=== PATIENT | female | born 1985 | race Caucasian/White ===

== ENCOUNTER 2019-07-25 00:41 | Emergency (ER) | payer OTHER ==
[2019-07-25 00:49] VITALS: BP 113/62
[2019-07-25] MEDS ORDERED: KETOROLAC 60 MG/2 ML VIAL IM STA (01:00)
--- NOTE | 2019-07-25 01:30 | ED Physician Documentation ---
PD HPI LOWER EXT INJURY - Stated complaint Stated Complaint: L TOE PX - Chief complaint Chief Complaint: Trauma Ext - History obtained from History obtained from: Patient - History of Present Illness PD HPI LOW EXT INJURY LOCATION: Left, Toe (great) Type of injury: Blunt / blow Where injury occurred: Home Timing - onset: Enter time (1729), Today Timing - duration: Hours Timing - details: Abrupt onset, Still present Improved by: Rest, Immobilization Worsened by: Moving, Palpating Associated symptoms: Swelling. No: Weakness, Numbness, Tingling Contributing factors: No: Anticoagulated Similar symptoms before: Has not had sx before Recently seen: Not recently seen - Additional information Additional information: Previously well 33-year-old female has dropped a hydro-flask on her left great toe. She did this earlier in the day and she is not able to sleep secondary to severe throbbing pain. She is concerned there is a fracture. 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 : None HEENT: None Psych: Depression, Anxiety, Post traumatic stress disorder Musculoskeletal: None Derm: None - Past Surgical History Past Surgical History: Yes /TURNTABLE OPERATOR: Other - Present Medications Home Medications: Ambulatory Orders Medication Instructions Recorded Confirmed Hydrocodone/Acetaminophen 1 - 2 each PO Q6H PRN #14 tablet 07/25/19 [Hydrocodon-Acetaminophen 5-325] - Allergies Allergies/Adverse Reactions: Allergies Allergy/AdvReac Type Severity Reaction Status Date / Time amoxicillin Allergy Intermediate Hives Verified 07/25/19 00:50 Penicillins Allergy Intermediate Hives Verified 07/25/19 00:50 - Social History Does the pt smoke?: Yes Smoking Status: Current every day smoker Does the pt drink ETOH?: No Does the pt have substance abuse?: No - Immunizations Immunizations are current?: Yes - POLST Patient has POLST: No PD ED PE NORMAL - Vitals Vital signs reviewed: Yes (Normal) - General General: Alert and oriented X 3, No acute distress, Well developed/nourished - HEENT HEENT: Atraumatic, PERRL, EOMI - Respiratory Respiratory: No respiratory distress - Derm Derm: Normal color, Warm and dry, No rash - Extremities Extremities: Other (The tip of the left great toe is swollen and ecchymotic it is tender there is no significant subungual hematoma. The great toe is swollen to the tip. Proximally there is some tenderness to the ball the foot.) - Neuro Neuro: Alert and oriented X 3, design checker 2-12 intact, No motor deficit, No sensory deficit, Normal speech Eye Opening: Spontaneous Motor: Obeys Commands Verbal: Oriented GCS Score: 15 - Psych Psych: Normal mood, Normal affect Results - Vitals Vitals: Vital Signs - 24 hr 07/25/19 07/25/19 00:43 01:07 Temperature 36.6 C Heart Rate 77 Respiratory 17 16 Rate Blood Pressure 113/62 O2 Saturation 99 Oxygen O2 Source Nasal cannula - Rads (name of study) toe Radiology: Prelim report reviewed (Impression: No acute osseous abnormalities. ), EMP read indepedently, See rad report PD MEDICAL DECISION MAKING - ED course Complexity details: reviewed results, re-evaluated patient, considered differential, d/w patient ED course: 33-year-old female with a painful contusion to the left great toe has a lot of swelling it is tense and tender. There is no evidence of fracture on x-ray examination she is administered Toradol 60 mg IM and we will send her home with some pain medication. Departure - Departure Disposition: Home, Self Care Clinical Impression: Contusion of toe of left foot Qualifiers: Encounter type: initial encounter Toe: great toe Damage to nail status: without damage Qualified Code(s): S90.112A - Contusion of left great toe without damage to nail, initial encounter Condition: Stable Instructions: ED Contusion Lower Ext Follow-Up: [facility] [Provider Group] Prescriptions: Hydrocodone/Acetaminophen [Hydrocodon-Acetaminophen 5-325] 1 - 2 each PO Q6H PRN #14 tablet PRN Reason: pain
[2019-07-25] MEDS ORDERED: HYDROcod/ACET 5/325 Prepack 4 PO STA (01:35)
--- NOTE | 2019-07-25 01:43 | XRAY Report ---
Reason: Left great toe contusion Procedure Date: 07/25/2019 Accession Number: [id number] / [id number] Procedure: XR - Toe(s) LT CPT Code: FULL RESULT: EXAM: LEFT TOE RADIOGRAPHY EXAM DATE: 07/25/2019 01:27 AM. CLINICAL HISTORY: Left great toe contusion. COMPARISON: None. TECHNIQUE: 3 views. FINDINGS: Bones: Normal. No fracture or bone lesion. Joints: Normal. No subluxations. Soft Tissues: Normal. No soft tissue swelling. IMPRESSION: No acute osseous abnormalities. RADIA
== END 2019-07-25 01:55 | disposition home or self-care (01) ==
LOC: ED 00:41
DX: S90.112A Contusion of left great toe without damage to nail, initial encounter (principal); W20.8XXA Other cause of strike by thrown, projected or falling object, initial encounter; Y92.009 Unspecified place in unspecified non-institutional (private) residence as the place of occurrence of the external cause; F17.200 Nicotine dependence, unspecified, uncomplicated
CPT/HCPCS: 73660; 99283; 99284

== ENCOUNTER 2020-01-22 15:27 | Emergency (ER) | payer OTHER ==
--- NOTE | 2020-01-22 16:24 | XRAY Report ---
Reason: Chest Pain Procedure Date: 01/22/2020 Accession Number: [id number] / [id number] Procedure: XR - Chest 1 View X-Ray CPT Code: 39614 Final Report FULL RESULT: EXAM: CHEST RADIOGRAPHY EXAM DATE: 01/22/2020 04:12 PM. CLINICAL HISTORY: Chest Pain. COMPARISON: None. TECHNIQUE: 1 view. FINDINGS: Lungs/Pleura: No focal opacities evident. No pleural effusion. No pneumothorax. Mediastinum: Within exam limitations, the cardiomediastinal contour is normal. Other: None. IMPRESSION: Normal single view chest. RADIA
[2020-01-22 16:31] LABS: BASOPHILS % (AUTO) 0.5 %; EOSINOPHILS # (AUTO) 0.1 10^3/uL (0.0-0.7); EOSINOPHILS % (AUTO) 2.2 %; HGB - HEMOGLOBIN 12.6 g/dL (12.0-16.0); LYMPHOCYTES # (AUTO) 2.6 10^3/uL (1.5-3.5); LYMPHOCYTES % (AUTO) 42.8 %; MEAN CORPUSCULAR HEMOGLOBIN 31.6 pg (27.0-31.0); MEAN CORPUSCULAR HGB CONC 34.3 g/dL (32.0-36.0); MEAN PLATELET VOLUME 9.3 fL (7.9-10.8); MONOCYTES # (AUTO) 0.5 10^3/uL (0.0-1.0); MONOCYTES % (AUTO) 8.6 %; NEUTROPHILS # (AUTO) 2.7 10^3/uL (1.5-6.6); NEUTROPHILS % (AUTO) 45.6 %; PLT - PLATELET COUNT 241 10^3/uL (130-450); RED BLOOD COUNT 3.99 10^6/uL (4.20-5.40); RED CELL DISTRIBUTION WIDTH 11.9 % (12.0-15.0)
--- NOTE | 2020-01-22 16:32 | ED Physician Documentation ---
History of Present Illness - Stated complaint Stated Complaint: CP/SOA/LT ARM PX - Chief complaint Chief Complaint: Cardiac - History obtained from History obtained from: Patient - History of Present Illness Timing: How many days ago (14) Pain level max: 5 Pain level now: 4 - Additonal information Additional information: Patient is a 34-year-old female who presents to the emergency department stating that she has had left-sided chest pain constantly for the past 14 days. No change in symptoms. Nothing makes it better or worse. No change with eating, drinking, movement, breathing. She does smoke cigarettes. She denies any possibility of . No recent leg pain or swelling. No recent travel. No recent surgery. She states that the chest pain has been there for 14 days, but the shortness of breath started today. She states she only feels short of breath when she tries to take a deep breath, she states that she feels like she cannot get a breath all the way in. Does not currently use inhalers. No fever. No cough. 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 : None HEENT: None Psych: Depression, Anxiety, Post traumatic stress disorder Musculoskeletal: None Derm: None - Past Surgical History Past Surgical History: Yes /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: Other - Present Medications Home Medications: Ambulatory Orders Medication Instructions Recorded Confirmed Hydrocodone/Acetaminophen 1 - 2 each PO Q6H PRN #14 tablet 07/25/19 [Hydrocodon-Acetaminophen 5-325] Albuterol Sulf [Ventolin Hfa 1 - 2 puffs INH Q4HR PRN #1 inhaler 01/22/20 Inhaler] - Allergies Allergies/Adverse Reactions: Allergies Allergy/AdvReac Type Severity Reaction Status Date / Time amoxicillin Allergy Intermediate Hives Verified 01/22/20 15:41 Penicillins Allergy Intermediate Hives Verified 01/22/20 15:41 - Social History Does the pt smoke?: Yes Smoking Status: Current every day smoker Does the pt drink ETOH?: No Does the pt have substance abuse?: No - Immunizations Immunizations are current?: Yes - POLST Patient has POLST: No PD ED PE NORMAL - Vitals Vital signs reviewed: Yes - General General: Alert and oriented X 3, No acute distress, Well developed/nourished - HEENT HEENT: PERRL, Moist mucous membranes - Neck Neck: Supple, no meningeal sign - Cardiac Cardiac: RRR, Strong equal pulses - Respiratory Respiratory: No respiratory distress, Other (Decreased breath sounds at the bases bilaterally) - Abdomen Abdomen: Soft, Non tender, Non distended - Derm Derm: Warm and dry, No rash - Extremities Extremities: No edema, No calf tenderness / cord - Neuro Neuro: Alert and oriented X 3 - Psych Psych: Normal mood, Normal affect - Free text exam Free text exam: No chest wall tenderness. Results - Vitals Vitals: Vital Signs - 24 hr 01/22/20 01/22/20 01/22/20 15:30 16:25 16:52 Temperature 36.4 C L Heart Rate 66 62 Respiratory 16 16 Rate Blood Pressure 148/81 H Blood Pressure 133/78 H [Right] O2 Saturation 99 01/22/20 01/22/20 17:00 17:48 Temperature Heart Rate 59 L 57 L Respiratory 16 14 Rate Blood Pressure 130/81 H 131/77 H Blood Pressure [Right] O2 Saturation 95 100 Oxygen O2 Source Room air - EKG (time done) 1532 Rate: Rate (enter#) (63) Rhythm: NSR [place]: Normal Intervals: Normal [place] QRS: Normal Ischemia: Normal ST segments - Labs Labs: Laboratory Tests 01/22/20 01/22/20 01/22/20 16:19 16:19 16:19 WBC 6.0 RBC 3.99 L Hgb 12.6 Hct 36.7 L MCV 92.0 MCH 31.6 H MCHC 34.3 RDW 11.9 L Plt Count 241 MPV 9.3 Neut # (Auto) 2.7 Lymph # (Auto) 2.6 Osborne # (Auto) 0.5 Eos # (Auto) 0.1 Baso # (Auto) 0.0 Absolute Nucleated RBC 0.00 Nucleated RBC % 0.0 D-Dimer Sodium 133 L Potassium 3.6 Chloride 100 L Carbon Dioxide 24 Anion Gap 9.0 BUN 16 Creatinine 0.7 Estimated GFR (MDRD) 95 Glucose 120 H Calcium 8.8 Total Bilirubin 0.3 AST 26 ALT 16 Alkaline Phosphatase 59 Troponin I High Sens < 2.3 L Total Protein 7.2 Albumin 4.2 Globulin 3.0 Albumin/Globulin Ratio 1.4 Lipase 43 01/22/20 16:50 WBC RBC Hgb Hct MCV MCH MCHC RDW Plt Count MPV Neut # (Auto) Lymph # (Auto) Osborne # (Auto) Eos # (Auto) Baso # (Auto) Absolute Nucleated RBC Nucleated RBC % D-Dimer < 200.0 L Sodium Potassium Chloride Carbon Dioxide Anion Gap BUN Creatinine Estimated GFR (MDRD) Glucose Calcium Total Bilirubin AST ALT Alkaline Phosphatase Troponin I High Sens Total Protein Albumin Globulin Albumin/Globulin Ratio Lipase - Rads (name of study) Chest x-ray Radiology: Prelim report reviewed, EMP read contemporaneously, See rad report (No acute disease) PD MEDICAL DECISION MAKING - ED course Complexity details: reviewed results, re-evaluated patient, considered differential (No ST elevation NM, no aortic dissection, no PE, no tension pneumothorax, no aortic aneurysm), d/w patient ED course: Patient feels better after nebulizer treatment. She feels like she is breathing easier and her chest pain is decreasing. Will prescribe an inhaler for her for home. No evidence of acute coronary syndrome, pulmonary embolus. No evidence of pneumothorax. No evidence of aortic dissection. Patient counseled regarding signs and symptoms for which I believe and urgent re-evaluation would be necessary. Patient with good understanding of and agreement to plan and is comfortable going home at this time This document was made in part using voice recognition software. While efforts are made to proofread this document, sound alike and grammatical errors may occur. Departure - Departure Disposition: Home, Self Care Clinical Impression: Chest pain Qualifiers: Chest pain type: unspecified Qualified Code(s): R07.9 - Chest pain, unspecified Condition: Good Instructions: ED Chest Pain Atypical Unkn Cause Follow-Up: Radha Ogden MD [Primary Care Provider] - Prescriptions: Albuterol Sulf [Ventolin Hfa Inhaler] 1 - 2 puffs INH Q4HR PRN #1 inhaler PRN Reason: Shortness Of Air/Wheezing Comments: The cause of your symptoms is unclear today. You seem to feel better with the inhaler. We will prescribe this for you. You should use this with a spacer as well. Return if you worsen.
[2020-01-22] MEDS ORDERED: ALBUTEROL NEB 2.5 MG/3 ML INH STA (16:39)
[2020-01-22] MEDS ORDERED: MAG HYDROX/AL HYDROX/SIMETH 30 ML UDC PO STA (16:41)
[2020-01-22] MEDS ORDERED: LIDOCAINE VISCOUS 2% 15 ML UDC MM STA (16:41)
[2020-01-22] MEDS ORDERED: FAMOTIDINE 20 MG TABLET PO STA (16:41)
[2020-01-22] MEDS ORDERED: SUCRALFATE 1 GM/10 ML UDC PO STA (16:41)
[2020-01-22 16:42] LABS: ALBUMIN 4.2 g/dL (3.2-5.5); ALBUMIN/GLOBULIN RATIO 1.4 (1.0-2.2); BILIRUBIN,TOTAL 0.3 mg/dL (0.2-1.0); CALCIUM 8.8 mg/dL (8.5-10.3); CREATININE 0.7 mg/dL (0.4-1.0); TOTAL PROTEIN 7.2 g/dL (6.7-8.2)
[2020-01-22 17:48] VITALS: BP 131/77
== END 2020-01-22 18:00 | disposition home or self-care (01) ==
LOC: ED 15:27
DX: R07.9 Chest pain, unspecified (principal); F17.210 Nicotine dependence, cigarettes, uncomplicated
CPT/HCPCS: 36415; 71045; 80053; 83690; 84484; 85025; 85379; 93005; 94640; 99284; A9270

== ENCOUNTER 2020-02-13 15:56 | Emergency (ER) | payer OTHER ==
[2020-02-13 16:11] VITALS: BP 122/63
[2020-02-13] MEDS ORDERED: HYDROcod/ACETAM 5/325 MG TABLET PO STA (16:21)
--- NOTE | 2020-02-13 16:22 | ED Physician Documentation ---
PD HPI UPPER EXT INJURY - Stated complaint Stated Complaint: RT HAND INJURY - Chief complaint Chief Complaint: Trauma Ext - History obtained from History obtained from: Patient (She tripped and fell in her dog pulled the leash. She landed on her right hand and has moderate to severe pain there. No other injuries. 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: Other - Present Medications Home Medications: Ambulatory Orders Medication Instructions Recorded Confirmed Hydrocodone/Acetaminophen 1 - 2 each PO Q6H PRN #14 tablet 07/25/19 [Hydrocodon-Acetaminophen 5-325] Albuterol Sulf [Ventolin Hfa 1 - 2 puffs INH Q4HR PRN #1 inhaler 01/22/20 Inhaler] Hydrocodone/Acetaminophen 1 - 2 each PO Q6H PRN #14 tablet 02/13/20 [Hydrocodon-Acetaminophen 5-325] - Allergies Allergies/Adverse Reactions: Allergies Allergy/AdvReac Type Severity Reaction Status Date / Time amoxicillin Allergy Intermediate Hives Verified 02/13/20 16:08 Penicillins Allergy Intermediate Hives Verified 02/13/20 16:08 - Social History Does the pt smoke?: Yes Smoking Status: Current every day smoker Does the pt drink ETOH?: No Does the pt have substance abuse?: No - Immunizations Immunizations are current?: Yes - POLST Patient has POLST: No PD ED PE NORMAL - Vitals Vital signs reviewed: Yes - General General: Alert and oriented X 3, No acute distress - Extremities Extremities: Other (She is tender near the MCPs of the fourth and fifth digits of the right hand and she is holding those fingers fairly flexed. There is a suggestion of a rotational deformity to the fifth finger but cannot get it down towards the carpals to test for saccade.) - Neuro Neuro: Alert and oriented X 3, Normal speech Results - Vitals Vitals: Vital Signs - 24 hr 02/13/20 16:08 Temperature 36.5 C Heart Rate 65 Respiratory 14 Rate Blood Pressure 122/63 O2 Saturation 96 Oxygen O2 Source Room air - Rads (name of study) R hand 3v Radiology: EMP read contemporaneously (Acute fractures of the proximal fourth and fifth phalangese, Both angulated) Procedures - Splint (location) RUE Splint applied by: Physician Type of splint: Fiberglass, Short arm, Ulnar gutter Other: Patient tolerated well, No complications, Neurovascular intact - Reduction Body part reduced: Right, Finger (4th and 5th) Fracture or dislocation: Fracture dislocation Anesthesia: Digital block Reduction aftercare: Alignment improved PD MEDICAL DECISION MAKING - ED course ED course: Finger was reduced after digital block with decent visual alignment. Placed in a splint. Referred to orthopedics. Departure - Departure Disposition: 01 Home, Self Care Clinical Impression: Finger fracture, right Qualifiers: Encounter type: initial encounter Finger: little finger Fracture type: closed Phalanx: proximal Fracture alignment: displaced Qualified Code(s): S62.616A - Displaced fracture of proximal phalanx of right little finger, initial encounter for closed fracture Proximal phalanx fracture of finger Qualifiers: Encounter type: initial encounter Finger: ring finger Fracture type: closed Fracture alignment: displaced Laterality: right Qualified Code(s): S62.614A - Displaced fracture of proximal phalanx of right ring finger, initial encounter for closed fracture Condition: Good Record reviewed to determine appropriate education?: Yes Instructions: ED Fx Finger Closed Prescriptions: Hydrocodone/Acetaminophen [Hydrocodon-Acetaminophen 5-325] 1 - 2 each PO Q6H PRN #14 tablet PRN Reason: pain Comments: Call the [facility], you need to follow-up with 1 of the orthopedic surgeons on [facility] within a few days to a week. Keep the splint on and dry, do not remove it. Do not drink or drive while taking narcotic pain medication. Note that many narcotic pain relievers also contain Tylenol/acetaminophen. Please ensure that your total dose of acetaminophen from all sources does not exceed 3 g (3000 mg) per day. You may get constipated while on this medication. Take a stool softener such as Colace twice a day while you are on it. Also add an [id number] laxative such as senna or MiraLAX on any day that you do not have a bowel movement. If you received a narcotic pain medication or sedative while in the emergency department, do not drive for the next 24 hours. Forms: Activity restrictions
[2020-02-13] MEDS ORDERED: BUFFERED LIDOCAINE 10 ML SYRINGE SUBQ STA (17:04)
--- NOTE | 2020-02-13 17:17 | XRAY Report ---
Reason: hand inj Procedure Date: 02/13/2020 Accession Number: [id number] / [id number] Procedure: XR - Hand 3 View RT CPT Code: Final Report FULL RESULT: EXAM: RIGHT HAND RADIOGRAPHY EXAM DATE: 02/13/2020 04:57 PM. CLINICAL HISTORY: Hand inj. COMPARISON: None. TECHNIQUE: 3 views. FINDINGS: Bones: Angulated fractures at the proximal aspect of the proximal fourth and fifth phalanx. Joints: Normal. No subluxations. Soft Tissues: Normal. No soft tissue swelling. IMPRESSION: Angulated fractures at the proximal aspect of the proximal fourth and fifth phalanx. RADIA
== END 2020-02-13 17:45 | disposition home or self-care (01) ==
LOC: ED 15:56
DX: S62.616A Displaced fracture of proximal phalanx of right little finger, initial encounter for closed fracture (principal); S62.614A Displaced fracture of proximal phalanx of right ring finger, initial encounter for closed fracture; W01.0XXA Fall on same level from slipping, tripping and stumbling without subsequent striking against object, initial encounter; Y93.K1 Activity, walking an animal; F17.200 Nicotine dependence, unspecified, uncomplicated
CPT/HCPCS: 73130; 99283; A9270

== ENCOUNTER 2020-02-14 18:14 | Emergency (ER) | payer OTHER ==
[2020-02-14 18:29] VITALS: BP 140/91
[2020-02-14] MEDS ORDERED: oxyCODONE 5 MG TABLET PO STA (18:44)
--- NOTE | 2020-02-14 18:46 | ED Physician Documentation ---
PD HPI UPPER EXT INJURY - Stated complaint Stated Complaint: RT ARM PX - Chief complaint Chief Complaint: Ext Problem - History obtained from History obtained from: Patient (She was seen here yesterday for 2 angulated fractures of the right fourth and fifth proximal digits. She was reduced. 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 HEENT: None Psych: Depression, Anxiety, Post traumatic stress disorder Musculoskeletal: None Derm: None - Past Surgical History Past Surgical History: Yes /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 WORKER: Other - Present Medications Home Medications: Ambulatory Orders Medication Instructions Recorded Confirmed Hydrocodone/Acetaminophen 1 - 2 each PO Q6H PRN #14 tablet 07/25/19 [Hydrocodon-Acetaminophen 5-325] Albuterol Sulf [Ventolin Hfa 1 - 2 puffs INH Q4HR PRN #1 inhaler 01/22/20 Inhaler] Hydrocodone/Acetaminophen 1 - 2 each PO Q6H PRN #14 tablet 02/13/20 [Hydrocodon-Acetaminophen 5-325] Oxycodone HCl/Acetaminophen 1 - 2 each PO Q6H PRN #20 tablet 02/14/20 [Percocet 5-325 mg Tablet] - Allergies Allergies/Adverse Reactions: Allergies Allergy/AdvReac Type Severity Reaction Status Date / Time amoxicillin Allergy Intermediate Hives Verified 02/14/20 18:26 Penicillins Allergy Intermediate Hives Verified 02/14/20 18:26 - Social History Does the pt smoke?: Yes Smoking Status: Current every day smoker Does the pt drink ETOH?: No Does the pt have substance abuse?: No - Immunizations Immunizations are current?: Yes - POLST Patient has POLST: No PD ED PE NORMAL - Vitals Vital signs reviewed: Yes - General General: Alert and oriented X 3, No acute distress - Extremities Extremities: Other (The splint was removed, it did not seem particularly tight. No overt swelling. The splint was replaced.) - Neuro Neuro: Alert and oriented X 3, Normal speech Results - Vitals Vitals: Vital Signs - 24 hr 02/14/20 18:26 Temperature 36.7 C Heart Rate 57 L Respiratory 16 Rate Blood Pressure 140/91 H O2 Saturation 99 Oxygen O2 Source Room air Departure - Departure Disposition: Home, Self Care Clinical Impression: Proximal phalanx fracture of finger Qualifiers: Encounter type: subsequent encounter Finger: ring finger Fracture type: closed Fracture alignment: displaced Laterality: right Fracture healing: with routine healing Qualified Code(s): S62.614D - Displaced fracture of proximal phalanx of right ring finger, subsequent encounter for fracture with routine healing Finger fracture, right Qualifiers: Encounter type: subsequent encounter Finger: little finger Fracture type: closed Phalanx: proximal Fracture alignment: displaced Fracture healing: with routine healing Qualified Code(s): S62.616D - Displaced fracture of proximal phalanx of right little finger, subsequent encounter for fracture with routine healing Prescriptions: Oxycodone HCl/Acetaminophen [Percocet 5-325 mg Tablet] 1 - 2 each PO Q6H PRN #20 tablet PRN Reason: pain Comments: Follow-up with the orthopedic surgeons on Monday as scheduled. Return for new or worsening symptoms. Ice and elevate as much as possible. Do not drink or drive while taking prescription pain medications.
== END 2020-02-14 18:57 | disposition home or self-care (01) ==
LOC: ED 18:14
DX: S62.614A Displaced fracture of proximal phalanx of right ring finger, initial encounter for closed fracture (principal); S62.616A Displaced fracture of proximal phalanx of right little finger, initial encounter for closed fracture; X58.XXXA Exposure to other specified factors, initial encounter; F17.200 Nicotine dependence, unspecified, uncomplicated
CPT/HCPCS: 99282; 99283; A9270